=== PATIENT | female | born 1995 | race American Indian/Alaskan Native ===

== ENCOUNTER 2016-09-11 00:34 | Emergency (ER) | payer MEDICAID ==
[2016-09-11 00:49] VITALS: BMI 31.0
[2016-09-11 00:52] VITALS: TEMP 97.5
--- NOTE | 2016-09-11 01:01 | ED PDOC ---
Arrival/HPI <Brandi,Raj - Last Filed: 09/11/16 02:28> - General Historian: Patient <Kevin Parks - Last Filed: 09/11/16 03:00> - General Chief Complaint: Flu-like Symptoms Time Seen by Provider: 09/11/16 00:58 - History of Present Illness Narrative History of Present Illness (Text): 09/11/16 01:00 20 y/o female, pmh asthma, +smoker, allergic to sulfa medication, c/o coughing/ throat pain/nasal congestion x 2 days. Pt. stated that she has dry coughing, associated with the throat pain, associated with the nasal congestion, no chest pain or shortness of breath, no calf pain, no night sweat, no numbness or tingling, no palpitation, no rash, no abdominal pain, no other medical or psychological complaints. (Kevin Parks) Past Medical History - Provider Review Nursing Documentation Reviewed: Yes - Infectious Disease Hx of Infectious Diseases: None - Tetanus Immunization Tetanus Immunization: Unknown - Cardiac Hx Cardiac Disorders: No - Pulmonary Hx Respiratory Disorders: Yes Hx Asthma: Yes - Neurological Hx Neurological Disorder: No - HEENT Hx HEENT Disorder: No - Renal Hx Renal Disorder: No - Endocrine/Metabolic Hx Endocrine Disorders: No - Hematological/Oncological Hx Blood Disorders: No Hx Blood Transfusions: No Hx Blood Transfusion Reaction: No - Integumentary Hx Dermatological Disorder: No - Musculoskeletal/Rheumatological Hx Musculoskeletal Disorders: No Hx Falls: No - Gastrointestinal Hx Gastroesophageal Reflux: Yes - Genitourinary/Gynecological Hx Genitourinary Disorders: No Hx Sexually Transmitted Diseases: Yes (HPV, chlamydia) - Psychiatric Hx Psychophysiologic Disorder: No Hx Depression: No Hx Emotional Abuse: No Hx Physical Abuse: No Hx Substance Use: No - Past Surgical History Past Surgical History: No Previous - Surgical History Hx Dilation and Curettage: Yes Other/Comment: Prior abotion induced. - Anesthesia Hx Anesthesia: Yes Hx Anesthesia Reactions: No Hx Malignant Hyperthermia: No - Suicidal Assessment Feels Threatened In Home Enviroment: No <Kevin Parks - Last Filed: 09/11/16 03:00> Family/Social History - Physician Review Nursing Documentation Reviewed: Yes Family/Social History: Unknown Family HX Smoking Status: Heavy Smoker > 10 Cigarettes Daily Hx Alcohol Use: Yes Frequency of alcohol use: Socially Hx Substance Use: No Hx Substance Use Treatment: No <Kevin Parks - Last Filed: 09/11/16 03:00> Allergies/Home Meds <Raj Paz - Last Filed: 09/11/16 02:28> <Kevin Parks - Last Filed: 09/11/16 03:00> Allergies/Adverse Reactions: Allergies shellfish derived Allergy (Verified 11/18/15 05:54) ANAPHYLAXIS sulfamethoxazole [From Bactrim] Allergy (Verified 11/18/15 05:54) ANAPHYLAXIS trimethoprim [From Bactrim] Allergy (Verified 11/18/15 05:54) ANAPHYLAXIS Review of Systems - Review of Systems Constitutional: absent: Fatigue, Fevers Eyes: absent: Vision Changes ENT: Sore Throat, Sinus Congestion Respiratory: Cough. absent: SOB, Sputum, Wheezing Cardiovascular: absent: Chest Pain Gastrointestinal: absent: Abdominal Pain, Nausea, Vomiting Musculoskeletal: absent: Arthralgias, Back Pain, Neck Pain, Joint Swelling, Myalgias Skin: absent: Rash, Pruritis, Skin Lesions, Laceration, Abscess, Ulcer, Cellulitis Neurological: absent: Headache, Dizziness, Focal Weakness, Gait Changes, Speech Changes, Facial Droop, Disequilibrium, Seizure <Kevin Parks - Last Filed: 09/11/16 03:00> Physical Exam Vital Signs Reviewed: Yes Temperature: Afebrile Blood Pressure: Normal Pulse: Regular Respiratory Rate: Normal Appearance: Positive for: Well-Appearing, Non-Toxic, Comfortable Pain Distress: None Mental Status: Positive for: Alert and Oriented X 3 - Systems Exam Head: Present: Atraumatic, Normocephalic, Other (+ttp on the lt. maxillary sinus with no facial or periorbital swelling. ) Pupils: Present: PERRL Extroacular Muscles: Present: EOMI Conjunctiva: Present: Normal Ears: Present: NORMAL TM, Normal Canal. No: Erythema, TM Bulging, Fluid, TM Perf Mouth: Present: Moist Mucous Membranes, Normal Lips, Normal Tounge, Normal Teeth Pharnyx: Present: ERYTHEMA, EXUDATE. No: TONSILS ENLARGED (lt. tonsillitis), Uvular Deviation, Muffled/Hoarse Voice, Strider, Soft Palate/Uvular Edema Nose (External): No: Abrasion, Contusion, Laceration, Lesions Nose (Internal): Present: Normal Inspection, No Active Bleeding. No: Rhinorrhea , Septal Hematoma, Epistaxis Neck: Present: Normal Range of Motion, Trachea Midline. No: Meningeal Signs, MIDLINE TENDERNESS, Paraspinal Tenderness Respiratory/Chest: Present: Clear to Auscultation, Good Air Exchange, Decreased Breath Sounds, Rhonchi (mild rhonchi clear with the coughing). No: Respiratory Distress, Accessory Muscle Use, Rales, Retracting, Tachypneic Cardiovascular: Present: Regular Rate and Rhythm, Normal S1, S2. No: Murmurs Abdomen: Present: Normal Bowel Sounds. No: Tenderness, Distention, Peritoneal Signs Back: Present: Normal Inspection Upper Extremity: Present: Normal Inspection. No: Cyanosis, Edema Lower Extremity: Present: Normal Inspection. No: Edema Neurological: Present: GCS=15, CN II-XII Intact, Speech Normal Skin: Present: Warm, Dry, Normal Color. No: Rashes Psychiatric: Present: Alert, Oriented x 3, Normal Insight, Normal Concentration <Kevin Parks - Last Filed: 09/11/16 03:00> Vital Signs Temp Pulse Resp BP Pulse Ox 09/11/16 00:49 97.5 F L 84 18 121/71 97 Medical Decision Making <Raj Paz - Last Filed: 09/11/16 02:28> <Kevin Parks - Last Filed: 09/11/16 03:00> ED Course and Treatment: 09/11/16 01:17 -rapid flu -toradol IM/augmentin -chest x-ray -observe and reassess 09/11/16 02:49 -urine hcg negative -rapid flu negative. -Pt. refused the xray, pt. feels much better after the duoneb treatment. -I will put the patient on the levaquin for the pneumonia and sinusitis coverage , risk and and benefits including the possible achilles tendon rupture explained to the patient which she is willing to accept the risk. -Discharge home with levaquin, flonase, claritin d24, promethazine dm, motrin, nebulizer solution/machine/mask, no gym or exercise while taking the antibiotic and stay hydrated, follow up with your own pmd within 2 days, return to the ER for any new or worsening signs or symptoms. (Kevin Parks) - Lab Interpretations Lab Results: Lab Results 09/11/16 01:20: Influenza Typ A,B (EIA) Negative for flu a/b - RAD Interpretation Radiology Orders: 09/11/16 00:59 CHEST TWO VIEWS (PA/LAT) [RAD] Stat - Medication Orders Current Medication Orders: Discontinued Medications Albuterol/Ipratropium (Duoneb 3 Mg/0.5 Mg (3 Ml) Ud) 3 ml IH STAT STA Stop: 09/11/16 01:08 Last Admin: 09/11/16 01:28 Dose: 3 ML Amoxicillin/Clavulanate Potassium (Augmentin 875 Mg-125 Mg Tab) 1 tab PO STAT STA PRN Reason: Protocol Stop: 09/11/16 01:08 Last Admin: 09/11/16 01:28 Dose: 1 TAB Ketorolac Tromethamine (Toradol) 60 mg IM STAT STA Stop: 09/11/16 01:08 Last Admin: 09/11/16 01:28 Dose: 60 MG IM Administration Charges Document 09/11/16 01:28 MR (Rec: 09/11/16 01:28 MR [id number]) Injection Site MAR Injection Site Right Gluteus Thomas Charges for Administration # of IM Administrations 1 - PA / SHEARER HELPER / Resident Statement LEIGHA has reviewed & agrees with the documentation as recorded. LEIGHA has examined the patient and agrees with the treatment plan. <Raj Paz - Last Filed: 09/11/16 02:28> - PA / SHEARER HELPER / Resident Statement LEIGHA has reviewed & agrees with the documentation as recorded. <Kevin Parks - Last Filed: 09/11/16 03:00> Disposition/Present on Arrival <Raj Paz - Last Filed: 09/11/16 02:28> - Present on Arrival Any Indicators Present on Arrival: No History of DVT/PE: No History of Uncontrolled Diabetes: No Urinary Catheter: No History of Decub. Ulcer: No History Surgical Site Infection Following: None - Disposition Have Diagnosis and Disposition been Completed?: Yes Disposition Time: 01:18 Patient Plan: Discharge <Kevin Parks - Last Filed: 09/11/16 03:00> - Disposition Diagnosis: Sinusitis, URI (upper respiratory infection) Disposition: HOME/ ROUTINE Condition: IMPROVED Additional Instructions: Discharge home with levaquin, flonase, claritin d24, promethazine dm, motrin, nebulizer solution/machine/mask, no gym or exercise while taking the antibiotic and stay hydrated, follow up with your own pmd within 2 days, return to the ER for any new or worsening signs or symptoms. Prescriptions: Albuterol 0.083% [Albuterol Sulfate 3 Ml] 3 ml IH QID PRN #20 neb PRN Reason: Other Loratadine/Pseudoephedrine [Claritin-D 24 Hour Tablet] 1 each PO DAILY #5 tab.er.24h Nebulizer/Compressor [Comp-Air Xlt Compressor System] 1 each MC DAILY PRN #1 each PRN Reason: Other Fluticasone Nasal [Flonase] 1 spr NS DAILY #1 spr Levofloxacin [Levaquin] 750 mg PO DAILY #5 tablet Ibuprofen [Motrin Tab] 800 mg PO TID PRN #21 tab PRN Reason: Other Mask, Face [Nebulizer Aerosol Mask Adult] 1 dev XX PRN PRN #1 dev PRN Reason: Other Referrals: Seth Le DO [Staff Provider] - [place] up [place] [facility] [place] [facility] [place] - Follow up with primary Forms: WORK NOTE
[2016-09-11] MEDS ORDERED: Albuterol-Ipratrop 3 mg / 0.5 (3 ml) UD IH STA (01:07)
[2016-09-11] MEDS ORDERED: Amoxicillin-Clav 875-125 mg Tab PO STA (01:07)
[2016-09-11 03:24] VITALS: BP 133/78; PULSE 86; RESP 19; O2SAT 99
== END 2016-09-11 03:25 | disposition home or self-care (01) ==
LOC: ED 00:34
DX: J01.90 Acute sinusitis, unspecified (principal); F17.210 Nicotine dependence, cigarettes, uncomplicated
CPT/HCPCS: 87804; 96372; 99284; J1885

== ENCOUNTER 2018-02-23 10:50 | Emergency (ER) | payer MEDICAID ==
[2018-02-23 10:50] VITALS: BMI 31.0
[2018-02-23 10:58] VITALS: RESP 18; TEMP 97.9
[2018-02-23] MEDS ORDERED: Albuterol-Ipratrop 3 mg / 0.5 (3 ml) UD ONE (11:02)
[2018-02-23] MEDS ORDERED: Albuterol-Ipratrop 3 mg / 0.5 (3 ml) UD IH STA (11:04)
--- NOTE | 2018-02-23 12:09 | ED PDOC ---
Arrival/HPI - General Chief Complaint: Respiratory Distress Time Seen by Provider: 02/23/18 10:59 Historian: Patient - History of Present Illness Narrative History of Present Illness (Text): 02/23/18 12:07 22yo female asthmatic who present with complaint of wheezing and SOB since yesterday. States she ran out of her inhaler and is scheduled to see her PMD today, but they were too busy so she came to ED. She smokes tobacco. She also report 3weeks of nonproductive cough that became worse yesterday. Report history of admission secondary to Asthma, but never intubated and not steroid dependent. Denies fever, chills, sick contact, any other complaint. Past Medical History - Provider Review Nursing Documentation Reviewed: Yes - Infectious Disease Hx of Infectious Diseases: None - Tetanus Immunization Tetanus Immunization: Unknown - Cardiac Hx Cardiac Disorders: No - Pulmonary Hx Respiratory Disorders: Yes Hx Asthma: Yes - Neurological Hx Neurological Disorder: No - HEENT Hx HEENT Disorder: No - Renal Hx Renal Disorder: No - Endocrine/Metabolic Hx Endocrine Disorders: No - Hematological/Oncological Hx Blood Disorders: No Hx Blood Transfusions: No Hx Blood Transfusion Reaction: No - Integumentary Hx Dermatological Disorder: No - Musculoskeletal/Rheumatological Hx Musculoskeletal Disorders: No Hx Falls: No - Gastrointestinal Hx Gastroesophageal Reflux: Yes - Genitourinary/Gynecological Hx Genitourinary Disorders: No Hx Sexually Transmitted Diseases: Yes (HPV, chlamydia) - Psychiatric Hx Psychophysiologic Disorder: No Hx Depression: No Hx Emotional Abuse: No Hx Physical Abuse: No Hx Substance Use: No - Past Surgical History Past Surgical History: No Previous - Surgical History Hx Dilation and Curettage: Yes - Anesthesia Hx Anesthesia: Yes Hx Anesthesia Reactions: No Hx Malignant Hyperthermia: No - Suicidal Assessment Feels Threatened In Home Enviroment: No Family/Social History - Physician Review Nursing Documentation Reviewed: Yes Family/Social History: Unknown Family HX Smoking Status: Heavy Smoker > 10 Cigarettes Daily Hx Alcohol Use: Yes Hx Substance Use: No Hx Substance Use Treatment: No Allergies/Home Meds Allergies/Adverse Reactions: Allergies shellfish derived Allergy (Verified 02/23/18 10:58) ANAPHYLAXIS sulfamethoxazole [From Bactrim] Allergy (Verified 02/23/18 10:58) ANAPHYLAXIS trimethoprim [From Bactrim] Allergy (Verified 02/23/18 10:58) ANAPHYLAXIS Review of Systems - Physician Review All systems were reviewed & negative as marked: Yes - Review of Systems Constitutional: Normal Eyes: Normal ENT: Normal Respiratory: SOB, Cough, Wheezing Cardiovascular: Normal Gastrointestinal: Normal Genitourinary Female: Normal Musculoskeletal: Normal Skin: Normal Neurological: Normal Endocrine: Normal Hemo/Lymphatic: Normal Psychiatric: Normal Physical Exam Vital Signs Reviewed: Yes Vital Signs Temp Pulse Resp BP Pulse Ox 02/23/18 12:44 86 18 143/73 97 02/23/18 10:56 97.9 F 87 18 134/57 L 98 Temperature: Afebrile Blood Pressure: Normal Pulse: Regular Respiratory Rate: Normal Appearance: Positive for: Well-Appearing, Non-Toxic, Comfortable Pain Distress: None Mental Status: Positive for: Alert and Oriented X 3 - Systems Exam Head: Present: Atraumatic, Normocephalic Pupils: Present: PERRL Extroacular Muscles: Present: EOMI Conjunctiva: Present: Normal Mouth: Present: Moist Mucous Membranes Neck: Present: Normal Range of Motion Respiratory/Chest: Present: Good Air Exchange, Wheezes (Mild expiratory wheeze diffusely), Decreased Breath Sounds. No: Respiratory Distress, Accessory Muscle Use, Rales, Retracting, Rhonchi Cardiovascular: Present: Regular Rate and Rhythm, Normal S1, S2. No: Murmurs Abdomen: No: Tenderness, Distention, Peritoneal Signs Back: Present: Normal Inspection Upper Extremity: Present: Normal Inspection. No: Cyanosis, Edema Lower Extremity: Present: Normal Inspection. No: Edema Neurological: Present: GCS=15, CN II-XII Intact, Speech Normal Skin: Present: Warm, Dry, Normal Color. No: Rashes Psychiatric: Present: Alert, Oriented x 3, Normal Insight, Normal Concentration Medical Decision Making ED Course and Treatment: 02/23/18 13:30 22yo female Asthmatic present with complaint of SOB and wheezing which is typical of her Asthma symptoms. Duoneb x3 Prednisone 60mg ordered. Pt was observed in ED for over 2hrs and on re evaluation notes that her symptoms improved. Her lung was CTA b/l. she was speaking in full sentence. Ambulatory without any distress. CXR NAD she will be DC home with prednisone, albuterol and tessalone. She was counseled on smoking cessation Referred to her PMD. - RAD Interpretation Radiology Orders: 02/23/18 12:20 CHEST PORTABLE [RAD] Stat - Medication Orders Current Medication Orders: Discontinued Medications Albuterol/Ipratropium (Duoneb 3 Mg/0.5 Mg (3 Ml) Ud) 3 ml IH Q15M STA Stop: 02/23/18 11:05 Last Admin: 02/23/18 11:26 Dose: 3 ml Guaifenesin/Dextromethorphan (Robitussin Dm) 5 ml PO Q4H STA Stop: 02/23/18 13:04 Last Admin: 02/23/18 13:11 Dose: 5 ml Prednisone (Prednisone Tab) 60 mg PO STAT ONE Stop: 02/23/18 11:06 Last Admin: 02/23/18 11:26 Dose: 60 mg Disposition/Present on Arrival - Present on Arrival Any Indicators Present on Arrival: No History of DVT/PE: No History of Uncontrolled Diabetes: No Urinary Catheter: No History of Decub. Ulcer: No History Surgical Site Infection Following: None - Disposition Have Diagnosis and Disposition been Completed?: Yes Diagnosis: Asthma Disposition: HOME/ ROUTINE Disposition Time: 13:40 Patient Plan: Discharge Condition: STABLE Discharge Instructions (ExitCare): Asthma in Adults Additional Instructions: Follow up with your doctor Return to ED for any new or worsening symptoms Prescriptions: Albuterol HFA [Ventolin HFA 90 mcg/actuation (8 g)] 2 puff IH [id number] #1 puff Benzonatate [Tessalon Perles] 100 mg PO TID #20 sgl Prednisone 50 mg PO DAILY #5 tab Referrals: Gael Celis MD [Primary Care Provider] - Follow up with primary Forms: [employer] (Tuvaluan)
[2018-02-23 12:53] VITALS: BP 143/73; PULSE 86; O2SAT 97
[2018-02-23] MEDS ORDERED: guaiFENesin DM 100 mg-10 mg/5 ml UD PO STA (13:03)
--- NOTE | 2018-02-23 14:12 | RAD ---
Date of service: 02/23/2018 HISTORY: SOB COMPARISON: No prior. FINDINGS: LUNGS: No active pulmonary disease. PLEURA: No significant pleural effusion identified, no pneumothorax apparent. CARDIOVASCULAR: Normal. OSSEOUS STRUCTURES: No significant abnormalities. VISUALIZED UPPER ABDOMEN: Normal. OTHER FINDINGS: None. IMPRESSION: No active disease.
== END 2018-02-23 14:01 | disposition home or self-care (01) ==
LOC: ED 10:50
DX: J45.909 Unspecified asthma, uncomplicated (principal); F17.210 Nicotine dependence, cigarettes, uncomplicated

== ENCOUNTER 2018-08-29 20:46 | Emergency (ER) | payer MEDICAID ==
[2018-08-29 20:46] VITALS: BMI 31.0
[2018-08-29] MEDS ORDERED: Dexamethasone 4 mg/1 ml IM STA (21:03)
[2018-08-29 21:06] VITALS: RESP 16; TEMP 98.9
--- NOTE | 2018-08-29 21:07 | ED PDOC ---
Arrival/HPI <Raj Paz - Last Filed: 08/29/18 22:01> - General Historian: Patient - History of Present Illness Narrative History of Present Illness (Text): 08/29/18 21:04 22 y/o female, no significant pmh, allergic to bactrim ds, c/o throat pain started yesterday. Aching pain, painful swallowing, no coughing, subjective fever with no objective temp, no recent traveling, no night sweat, no dizziness, no change in vision, no neck pain, no painful turning the neck, no tongue swelling, no rash, no other medical or psychological complaints. <Kevin Parks - Last Filed: 08/29/18 22:35> - General Chief Complaint: ENT Problem Time Seen by Provider: 08/29/18 20:55 Past Medical History - Provider Review Nursing Documentation Reviewed: Yes - Infectious Disease Hx of Infectious Diseases: None - Tetanus Immunization Tetanus Immunization: Unknown - Cardiac Hx Cardiac Disorders: No - Pulmonary Hx Respiratory Disorders: Yes Hx Asthma: Yes - Neurological Hx Neurological Disorder: No - HEENT Hx HEENT Disorder: No - Renal Hx Renal Disorder: No - Endocrine/Metabolic Hx Endocrine Disorders: No - Hematological/Oncological Hx Blood Disorders: No Hx Blood Transfusions: No Hx Blood Transfusion Reaction: No - Integumentary Hx Dermatological Disorder: No - Musculoskeletal/Rheumatological Hx Musculoskeletal Disorders: No Hx Falls: No - Gastrointestinal Hx Gastroesophageal Reflux: Yes - Genitourinary/Gynecological Hx Genitourinary Disorders: No Hx Sexually Transmitted Diseases: Yes (HPV, chlamydia) - Psychiatric Hx Psychophysiologic Disorder: No Hx Depression: No Hx Emotional Abuse: No Hx Physical Abuse: No Hx Substance Use: No - Past Surgical History Past Surgical History: No Previous - Surgical History Hx Dilation and Curettage: Yes - Anesthesia Hx Anesthesia: Yes Hx Anesthesia Reactions: No Hx Malignant Hyperthermia: No - Suicidal Assessment Feels Threatened In Home Enviroment: No <Kevin Parks - Last Filed: 08/29/18 22:35> Family/Social History - Physician Review Nursing Documentation Reviewed: Yes Family/Social History: Unknown Family HX Smoking Status: Heavy Smoker > 10 Cigarettes Daily Hx Alcohol Use: Yes Hx Substance Use: No Hx Substance Use Treatment: No <Kevin Parks - Last Filed: 08/29/18 22:35> Allergies/Home Meds <Raj Paz - Last Filed: 08/29/18 22:01> <Kevin Parks - Last Filed: 08/29/18 22:35> Allergies/Adverse Reactions: Allergies shellfish derived Allergy (Verified 08/29/18 20:53) ANAPHYLAXIS sulfamethoxazole [From Bactrim] Allergy (Verified 08/29/18 20:53) ANAPHYLAXIS trimethoprim [From Bactrim] Allergy (Verified 08/29/18 20:53) ANAPHYLAXIS Review of Systems - Review of Systems Constitutional: absent: Fatigue, Fevers Eyes: absent: Vision Changes ENT: Sore Throat. absent: Hearing Changes, Rhinorrhea, Epistaxis Respiratory: absent: SOB, Cough, Sputum, Wheezing Cardiovascular: absent: Chest Pain Gastrointestinal: absent: Abdominal Pain, Diarrhea, Nausea, Vomiting Musculoskeletal: absent: Arthralgias, Back Pain Skin: absent: Rash, Pruritis Neurological: absent: Headache, Dizziness Psychiatric: absent: Anxiety, Depression, Suicidal Ideation <Kevin Parks Q - Last Filed: 08/29/18 22:35> Physical Exam Vital Signs Temp Pulse Resp BP Pulse Ox 08/29/18 20:59 98.9 F 107 H 16 116/86 100 <BrandiRaj white - Last Filed: 08/29/18 22:01> Vital Signs Reviewed: Yes Vital Signs Temp Pulse Resp BP Pulse Ox 08/29/18 20:59 98.9 F 107 H 16 116/86 100 Temperature: Afebrile Blood Pressure: Normal Pulse: Tachycardic Respiratory Rate: Normal Appearance: Positive for: Well-Appearing, Non-Toxic, Comfortable Pain Distress: Moderate Mental Status: Positive for: Alert and Oriented X 3 - Systems Exam Head: Present: Atraumatic, Normocephalic Pupils: Present: PERRL Extroacular Muscles: Present: EOMI Conjunctiva: Present: Normal Ears: Present: NORMAL TM, Normal Canal. No: Erythema Mouth: Present: Moist Mucous Membranes Pharnyx: Present: ERYTHEMA, TONSILS ENLARGED, Other (uvula midline with no deviation, airway patent. ). No: EXUDATE, Peritonsilar Swelling, Uvular Deviation, Muffled/Hoarse Voice, Strider, Soft Palate/Uvular Edema Neck: Present: Normal Range of Motion Respiratory/Chest: Present: Clear to Auscultation, Good Air Exchange. No: Respiratory Distress, Accessory Muscle Use Cardiovascular: Present: Regular Rate and Rhythm, Normal S1, S2. No: Murmurs Abdomen: No: Tenderness, Distention, Peritoneal Signs Back: Present: Normal Inspection Upper Extremity: Present: Normal Inspection. No: Cyanosis, Edema Lower Extremity: Present: Normal Inspection. No: Edema Neurological: Present: GCS=15, CN II-XII Intact, Speech Normal Skin: Present: Warm, Dry, Normal Color. No: Rashes Lymphatic: Present: Cervical Adenopathy (Lt. anterior) Psychiatric: Present: Alert, Oriented x 3, Normal Insight, Normal Concentration <Kevin Parks Q - Last Filed: 08/29/18 22:35> Medical Decision Making - Medication Orders Current Medication Orders: Discontinued Medications Dexamethasone (Decadron Inj) 8 mg IM STAT STA Stop: 08/29/18 21:04 Last Admin: 08/29/18 21:14 Dose: 8 mg IM Administration Charges Document 08/29/18 21:14 (Rec: 08/29/18 21:15 [id number] Injection Site MAR Injection Site Left Deltoid Charges for Administration # of IM Administrations 1 Ketorolac Tromethamine (Toradol) 60 mg IM STAT STA Stop: 08/29/18 21:04 Last Admin: 08/29/18 21:15 Dose: 60 mg MAR Pain Assessment Document 08/29/18 21:15 (Rec: 08/29/18 21:15 [id number] Pain Reassessment Is this a pain reassessment? No Sleep Is patient sleeping during reassessment? No Presence of Pain Presence of Pain Yes Pain Scale Used Protocol: PSCALES Pain Scale Used Numeric Location Pain Location Body Site Throat Description Intensity of Pain at present 7 IM Administration Charges Document 08/29/18 21:15 (Rec: 08/29/18 21:15 [id number] Charges for Administration # of IM Administrations 1 <Raj Paz - Last Filed: 08/29/18 22:01> ED Course and Treatment: 08/29/18 21:08 -Toradol/decadron if is negative -Rapid strep -Observe and reassess 08/29/18 22:34 -Urine hcg is negative -Rapid strep is negative -Pt. feels well and better, HR improved -Discharge home with augmentin, motrin, salt water gargling, soft food diet, follow up with your own pmd and ENT within 2 days, return to the ER for any new or worsening signs or symptoms. - Medication Orders Current Medication Orders: Dexamethasone (Decadron Inj) 8 mg IM STAT STA Stop: 08/29/18 21:04 Ketorolac Tromethamine (Toradol) 60 mg IM STAT STA Stop: 08/29/18 21:04 <Kevin Parks - Last Filed: 08/29/18 22:35> - PA / MAILROOM COURIER / Resident Statement LEIGHA has reviewed & agrees with the documentation as recorded. <Raj Paz - Last Filed: 08/29/18 22:01> - PA / MAILROOM COURIER / Resident Statement LEIGHA has reviewed & agrees with the documentation as recorded. <Kevin Parks - Last Filed: 08/29/18 22:35> Disposition/Present on Arrival <Raj Pza - Last Filed: 08/29/18 22:01> - Present on Arrival Any Indicators Present on Arrival: No History of DVT/PE: No History of Uncontrolled Diabetes: No Urinary Catheter: No History of Decub. Ulcer: No History Surgical Site Infection Following: None - Disposition Have Diagnosis and Disposition been Completed?: Yes Disposition Time: 22:35 Patient Plan: Discharge <Kevin Parks - Last Filed: 08/29/18 22:35> - Disposition Diagnosis: Tonsillitis with exudate, Cervical lymphadenopathy Disposition: HOME/ ROUTINE Patient Problems: Current Active Problems Problem Status Onset Tonsillitis with exudate Acute Cervical lymphadenopathy Acute Condition: IMPROVED Additional Instructions: -Discharge home with augmentin, motrin, salt water gargling, soft food diet, follow up with your own pmd and ENT within 2 days, return to the ER for any new or worsening signs or symptoms. Prescriptions: Amoxicillin/Clavulanate [Augmentin 875 MG-125 MG] 1 tab PO BID #20 tab Ibuprofen [Motrin Tab] 600 mg PO QID PRN #30 tab PRN Reason: Other Referrals: Gael Celis MD [Primary Care Provider] - Follow up with primary Jorge Hayden DO [Staff Provider] - Follow up with primary Forms: [employer] (Liberian), WORK NOTE
[2018-08-29] MEDS ORDERED: Amoxicillin-Clav 875-125 mg Tab PO STA (22:02)
[2018-08-29 22:42] VITALS: BP 126/66; PULSE 75; O2SAT 98
== END 2018-08-29 22:42 | disposition home or self-care (01) ==
LOC: ED 20:46
DX: J03.90 Acute tonsillitis, unspecified (principal); R59.0 Localized enlarged lymph nodes; F17.210 Nicotine dependence, cigarettes, uncomplicated
CPT/HCPCS: 81025; 87070; 87430; 96372; 99283; J1100; J1885